=== PATIENT | female | born 1970 | race Caucasian/White ===

== ENCOUNTER 2016-10-12 13:24 | Emergency (ER) | payer OTHER ==
[~2016-10-12] VITALS: Ht 157.5 cm; Wt 65.0 kg
[2016-10-12] MEDS ORDERED: NORCO 5/3251 TABLET PO (14:20)
[2016-10-12 14:32] LABS: BASE EXCESS -2.6 mEq/L (-3 to +3); BICARBONATE 20.6 mEq/L (22-26); CARBOXY HGB 5.4 % (0-5); METHEMOGLOBIN 0.8 % (0-1.5); PCO2 31 mm Hg (35-45); PO2 83 mm Hg (80-100); SITE LR; pH 7.43 (7.35-7.45)
[2016-10-12 14:33] LABS: COMMENTS - BLOOD GASES NEG A+C+; DEVICE RA; TOTAL RESP RATE 18 resp/min
[2016-10-12 14:47] VITALS: BP 141/68
== END 2016-10-12 14:48 | disposition home or self-care (01) ==
LOC: EME 13:24
PROVIDERS: Physician Assistant
DX: T23.101A Burn of first degree of right hand, unspecified site, initial encounter (principal); J70.5 Respiratory conditions due to smoke inhalation; T31.0 Burns involving less than 10% of body surface; X08.8XXA Exposure to other specified smoke, fire and flames, initial encounter; Y93.G3 Activity, cooking and baking; F17.200 Nicotine dependence, unspecified, uncomplicated; Z88.6 Allergy status to analgesic agent
CPT/HCPCS: 36600; 82803; 99281; 99284